=== PATIENT | male | born 1995 | race Caucasian/White ===

== ENCOUNTER 2016-11-26 09:21 | Emergency (ER) | payer OTHER ==
[~2016-11-26] VITALS: Ht 177.8 cm; Wt 56.7 kg
[2016-11-26] MEDS ORDERED: KETOROLAC 30 MG/ML VIAL (J1885) IM ONE (10:30)
[2016-11-26] MEDS ORDERED: ULTR50TA PO (10:55)
[2016-11-26] MEDS ORDERED: CYCL10TA PO (10:55)
[2016-11-26] MEDS ORDERED: NAPR500T PO (10:55)
[2016-11-26 11:14] VITALS: BP 150/67
== END 2016-11-26 11:18 | disposition home or self-care (01) ==
LOC: M ED 10:41
DX: M54.5 Low back pain (principal)
CPT/HCPCS: 96372; 99281; J1885; J3360